=== PATIENT | male | born 1995 | race Caucasian/White ===

== ENCOUNTER → 2017-04-16 | Outpatient (CLI) | payer OTHER ==
[~2017-04-16] MED LIST: DICL75 PO; LEVO100T4 PO; METHI10 PO
--- NOTE | 2017-04-16 13:23 | RADRPT ---
EXAM DATE/TIME: 04/16/2017 00:00 [facility] COMPARISON: No previous studies available for comparison. INDICATIONS : Testicular swelling. MEDICAL HISTORY : Thyroid disease. SURGICAL HISTORY : None. ENCOUNTER: Initial ACUITY: 1 week PAIN SCORE: 2/10 LOCATION: Bilateral scrotum. MEASUREMENTS: RIGHT TESTICLE: 4.6 x 3.0 x 2.2cm LEFT TESTICLE: 3.9 x 4.8 x 3.9cm FINDINGS: RIGHT TESTICLE: Homogeneous echotexture without intra or extratesticular mass. Blood flow is symmetric and within no rmal limits. No hydrocele or varicocele. Epididymis is within normal limits. LEFT TESTICLE: There is an intratesticular mass observed measuring 4.1 x 4.1 x 3.3 cm. It shows mild hyperemia. No d iscrete calcifications observed. Small areas of cystlike formation seen scattered throughout the lesi on. It is well circumscribed and smoothly marginated. No discrete extratesticular extension appreciat ed. Overall it is hypoechoic relative to the adjacent normal testicular tissue. There is a small vari cocele. No hydrocele. SCROTUM: Within normal limits. CONCLUSION: 1. 4.1 x 4.1 x 3.3 cm intratesticular mass. 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 2. Small left-sided varicocele. Mario Spivey Jr., MD on April 16, 2017 at 13:15 Board Certified Radiologist. This report was verified electronically.
== END ==
LOC: HRAD 10:48
DX: N50.89 Other specified disorders of the male genital organs (principal)
CPT/HCPCS: 76870; 93975

== ENCOUNTER → 2017-04-29 | Outpatient (CLI) | payer OTHER ==
[~2017-04-29] MED LIST changes: +CEPH-459 PO; -DICL75 PO; +IOHEXOL 350 MG/ML 10 ML VIAL (for RAD DIAG) IV ONE; -LEVO100T4 PO; -METHI10 PO; +PERC5TAB12 PO
--- NOTE | 2017-04-29 13:53 | RADRPT ---
EXAM DATE/TIME: 04/29/2017 12:47 [facility] COMPARISON: No previous studies available for comparison. INDICATIONS : Metastasis. MEDICAL HISTORY : Testicular mass SURGICAL HISTORY : surgery 05-03-17 for testicular mass ENCOUNTER: Initial ACUITY: 2 weeks PAIN SCORE: Non-responsive. LOCATION: Bilateral chest FINDINGS: PA and lateral views of the chest demonstrate the lungs to be symmetrically aerated without evidence of mass, infiltrate or effusion. The cardiomediastinal contours are unremarkable. Osseous structure s are intact. CONCLUSION: No acute disease. Ravindra Lopez MD on April 29, 2017 at 13:50 Board Certified Radiologist. This report was verified electronically.
--- NOTE | 2017-04-29 16:11 | RADRPT ---
EXAM DATE/TIME: 04/29/2017 15:00 [facility] COMPARISON: No previous studies available for comparison. INDICATIONS : Left testicular mass. IV CONTRAST: 100 cc Omnipaque 350 (iohexol) IV ORAL CONTRAST: No oral contrast ingested. RADIATION DOSE: 4.68 CTDIvol (mGy) MEDICAL HISTORY : None SURGICAL HISTORY : None. ENCOUNTER: Initial ACUITY: 1 day PAIN SCALE: 0/10 LOCATION: Bilateral abdomen. TECHNIQUE: Volumetric scanning of the abdomen and pelvis was performed. Using automated exposure control and ad justment of the mA and/or kV according to patient size, radiation dose was kept as low as reasonably achievable to obtain optimal diagnostic quality images. DICOM format image data is available electro nically for review and comparison. FINDINGS: LOWER LUNGS: The visualized lower lungs are clear. LIVER: Homogeneous density without lesion. There is no dilation of the biliary tree. No calcified gallston es. SPLEEN: Normal size without lesion. PANCREAS: Within normal limits. KIDNEYS: Normal in size and shape. There is no mass, stone or hydronephrosis. ADRENAL GLANDS: Within normal limits. VASCULAR: There is no aortic aneurysm. BOWEL/MESENTERY: The stomach, small bowel, and colon demonstrate no acute abnormality. There is no free intraperitone al air or fluid. ABDOMINAL WALL: Within normal limits. RETROPERITONEUM: A soft tissue mass is identified within the left side of the retroperitoneum at the level of the left renal lower pole. It measures approximately 2.8 x 3.7 cm in size.BLADDER: No wall thickening or mass. REPRODUCTIVE: Large heterogeneous complex mass is identified in the left hemiscrotum. It measures 6 x 4.7 cm in siz e. Trace fluid is identified in the pelvis. INGUINAL: There is no lymphadenopathy or hernia. MUSCULOSKELETAL: Within normal limits for patient age. CONCLUSION: 1. Large left-sided testicular mass. 2. Left-sided retroperitoneal soft tissue mass characteristic of malignant lymphadenopathy. Complete staging with PET CT should be considered. 3. Trace fluid within the pelvis. Gulshan Lee MD on April 29, 2017 at 16:02 Board Certified Radiologist. This report was verified electronically.
== END ==
LOC: HRAD 12:35
PROVIDERS: ATTEND Urology
DX: N50.9 Disorder of male genital organs, unspecified (principal)
CPT/HCPCS: 71020; 74177; Q9967

== ENCOUNTER → 2017-05-03 | Day surgery (SDC) | payer OTHER ==
[~2017-05-03] VITALS: Ht 185.4 cm; Wt 69.2 kg
[~2017-05-03] MED LIST changes: +*morphine SULFATE 8 MG/ML PERIprocedure ONLY ONE; +ACETAMINOPHEN 1000 MG/100 ML VIAL IV ONE; +CHLORHEXIDINE GLUCONATE 2 % 1 PACK (2 CLOTHS) TOPICAL PRN; +INSULIN HUMAN REGULAR 1,000 UNITS/10 ML VIAL SQ PRN; -IOHEXOL 350 MG/ML 10 ML VIAL (for RAD DIAG) IV ONE; +KETOROLAC TROMETHAMINE 60 MG/2 ML (IM) VIAL IM ONE; +LACTATED RINGER'S 1000 ML INJ 1,000 ML IV ONE; +LACTATED RINGER'S 1000 ML IV PRN; +METOPROLOL TARTRATE 25 MG TAB PO PRN; +MIDAZOLAM HCL 2 MG/2 ML VIAL ONE; +ONDANSETRON HCL 4 MG/2 ML VIAL IV PUSH ONE; +ONDANSETRON HCL 4 MG/2 ML VIAL IV PUSH PRN; +POVIDONE IODINE 5% (ANTISEPSIS KIT) 4 APPLICATIONS EACH NARE PRN; +PROPOFOL 200 MG/20 ML AMP IV ONE; +SODIUM CHLORID 0.9% 500 ML IV PRN; +ceFAZolin 1,000 MG/NS 100 ML IV SCH; +fentaNYL CITRATE 250 MCG/5 ML AMP ONE; +oxyCODONE/ACETAMINOPHEN 5 MG/325 MG TAB PO PRN
[2017-05-03 09:52] VITALS: BP 125/75; PULSE 93; RESP 20; TEMP 98.3; O2SAT 100
--- NOTE | 2017-05-03 12:55 | PD.OP ---
Operative Report Date of Surgery: May 03, 2017 Preoperative Diagnosis: (1) Testicular mass Postoperative Diagnosis: (1) Testicular mass Procedure: Left radical orchiectomy and insertion of testicular prosthetic Anesthesia: General Surgeon: Abdiel Aguilar Assignment Editor(s): None Operation and Findings: Indication for procedure: Case of a pleasant 21-year-old gentleman who recently discovered a left sided testicular mass. 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 Tumor markers significant elevation of the alpha fetoprotein and LDH levels. CT scan demonstrated a slightly less than 4 cm left retroperitoneal lymph node at the level of the lower pole of the left kidney suspicious for metastatic disease. Presents now to undergo a left radical inguinal orchiectomy and insertion of testicular prosthetic. Operative procedure in detail: Patient was brought to the operating room suite and placed supine on the OR table. He was then placed under general endotracheal anesthesia. He was then prepped and draped in normal sterile fashion. After appropriate timeout was undertaken I proceeded with making a left inguinal incision extending a distance of approximately 4 cm with a #15 blade. The incision was extended down to the underlying external oblique fascia using the Bovie cautery. The left external ring was identified and the external oblique was opened up superiorly laterally following the course of the external oblique fibers to the level of the internal ring. Care was taken to avoid any inadvertent injury to the ilioinguinal nerve. The spermatic cord was mobilized and tethered with a Campbell drain. It was then divided and ligated at the level of the internal ring. A 0 silk suture was utilized to tie off the cord and long tails were left at the stump. The spermatic cord was further mobilized down to the level of the testicle which was then delivered through the wound. The gubernacular attachments were transected with the Bovie cautery. The specimen consisting of the left testicle and spermatic cord were handed off and sent to pathology. Careful inspection was made for active bleeding and none was noted. Next a testicular prostheses was utilized and an appropriate size was selected to make the contralateral testicle. Saline was administered into the prosthesis to create a rubbery consistency consistent with the contralateral testes. The prostate testicle was then anchored to the internal surface of the scrotum with a 3-0 Prolene suture which was invaginated up towards the wound to facilitate suture placement. Once the prosthetic was anchored, it was carefully delivered inferiorly to the left hemiscrotum. Once placed it had an excellent cosmetic appearance in both size and location. The external oblique was next reapproximated starting superiolaterally and working inferior medially with a running 3-0 Vicryl suture. The external ring was reconstructed at the most inferior aspect of the reapproximation. Next the wound was closed in 2 layers. The deep layer was reapproximated with interrupted 3-0 chromic suture material and the skin edges reapproximated in subcuticular fashion utilizing a 4-0 undyed Vicryl suture. Mastisol and Steri- Strips were applied and the wound covered with a Primapore dressing. The patient tolerated the procedures without complications and was transferred to the PACU in satisfactory condition. Abdiel Aguilar MD May 03, 2017 12:55
[2017-05-03 14:38] VITALS: BP 127/79; PULSE 60; RESP 24; TEMP 96.8; O2SAT 94
== END | disposition home or self-care (01) ==
LOC: HSDC 09:20
PROVIDERS: ATTEND Urology
DX: C62.92 Malignant neoplasm of left testis, unspecified whether descended or undescended (principal); N50.89 Other specified disorders of the male genital organs
CPT/HCPCS: 00926; 54530; 88309; J0131; J0690; J1885; J2250; J2270; J2405; J3010; J7120; L8699; 88307